=== PATIENT | male | born 1990 | race Hispanic/Latino ===

== ENCOUNTER 2021-01-04 05:39 | Emergency (ER) | payer OTHER, SELFPAY ==
[2021-01-04] MEDS ORDERED: Acetaminophen 500 MG TAB ONE (05:59)
[2021-01-04 15:39] LABS: SARS-CoV-2 PCR by NAA Not Detected (NotDetected)
== END 2021-01-04 07:33 | disposition home or self-care (01) ==
LOC: MADERS 05:39
DX: J06.9 Acute upper respiratory infection, unspecified (principal); Z20.822 Contact with and (suspected) exposure to COVID-19
CPT/HCPCS: 87081; 87430; 87635; 99283; U0003; U0005